=== PATIENT | female | born 1965 | race Caucasian/White ===

== ENCOUNTER 2017-08-06 07:28 | Emergency (ER) | payer BC ==
[2017-08-06 07:44] VITALS: BP 122/78
--- NOTE | 2017-08-06 08:02 | UC ---
Truncal Trauma HPI - HPI Summary HPI Summary: LEFT RIBS PAIN X 5 DAYS INJURY TO HER LEFT SIDE/ RIBS , HIT HER LEFT RIBS TO THE CAR DOOR SHE WAS GETTING OUT OF HER CAR PAIN WITH DEEP BREATHING AND MOVING NO COUGH, NO SOB , NO FEVER, OR CHILLS - History Of Current Complaint Chief Complaint: UCGeneralIllness Stated Complaint: LEFT RIB PAIN 4 DAYS Time Seen by Provider: 08/06/17 07:41 Hx Obtained From: Patient Hx Last Menstrual Period: 06/18 ?: No Onset/Duration: Sudden Onset, Lasting Days - 5, Still Present Onset Of Pain: Immediate Severity Initially: Moderate Severity Currently: Moderate Pain Intensity: 5 Mechanism Of Injury: Blunt Trauma Aggravating Factor(s): Movement, Deep Breathing Alleviating factor(s): Rest Associated Signs And Symptoms: Negative: SOB, Chest Pain, Cough, Hematuria, Abdominal Pain, Fever, Nausea, Vomiting - Allergies/Home Medications Allergies/Adverse Reactions: Allergies Allergy/AdvReac Type Severity Reaction Status Date / Time No Known Allergies Allergy Verified 08/06/17 07:38 Home Medications: Home Medications Nebivolol TAB (NF) [Bystolic TAB (NF)] 5 mg PO DAILY 08/06/17 [History Confirmed 08/06/17] PMH/Surg Hx/FS Hx/Imm Hx Cardiovascular History: Cardiac Disease - Surgical History Surgical History: Yes Surgery Procedure, Year, and Place: appy. . tubaligation. court. ablation - Family History Known Family History: Negative: Diabetes - Social History Alcohol Use: Occasionally Substance Use Type: None Smoking Status (MU): Light Every Day Tobacco Smoker - Immunization History Most Recent Tetanus Shot: unknown Review of Systems Constitutional: Negative Skin: Negative Eyes: Negative ENT: Negative Respiratory: Negative Cardiovascular: Negative Is Patient Immunocompromised?: No All Other Systems Reviewed And Are Negative: Yes Physical Exam Triage Information Reviewed: Yes Appearance: Well-Appearing, No Pain Distress, Well-Nourished Vital Signs: Initial Vital Signs Temp 98.3 F 08/06/17 07:37 Pulse 91 08/06/17 07:37 Resp 16 08/06/17 07:37 BP 122/78 08/06/17 07:37 Pulse Ox 98 08/06/17 07:37 Vital Signs Reviewed: Yes Eye Exam: Normal Eyes: Positive: Conjunctiva Clear ENT: Positive: Normal ENT inspection, Hearing grossly normal, Pharynx normal Neck: Positive: Supple, Nontender, No Lymphadenopathy Respiratory: Positive: Lungs clear, Normal breath sounds, No respiratory distress, No accessory muscle use Cardiovascular: Positive: RRR, No Murmur, Pulses Normal Abdomen Description: Positive: Nontender, Soft. Negative: CVA Tenderness (R), CVA Tenderness (L), Distended, Guarding Bowel Sounds: Positive: Present Musculoskeletal: Positive: Other: - LEFT RIBS: NO SWELLING, NO BRUISING, + TENDERNESS RIBS 4,5,6 Truncal Trauma Course/Dx - Differential Dx/Diagnosis Provider Diagnoses: CONTUSION RIBS LEFT SIDE Discharge - Sign-Out/Discharge Documenting (check all that apply): Discharge - Discharge Plan Condition: Stable Disposition: HOME Prescriptions: Naproxen 500 mg PO BID #20 tablet Patient Education Materials: Rib Contusion (ED) Referrals: Sushant Thomas MD [Primary Care Provider] - - Billing Disposition and Condition Condition: STABLE Disposition: HOME
--- NOTE | 2017-08-06 08:11 | RAD ---
INDICATION: Left rib pain for days after injury COMPARISON: None. TECHNIQUE: 5 views of the left ribs were obtained. FINDINGS: An external radiodense marker is seen overlying the lower left flank. No fracture or significant focal osseous abnormality is seen. No pneumothorax is apparent. Limited views demonstrate grossly clear lungs. IMPRESSION: No radiographically apparent displaced rib fracture or pneumothorax. If the patient's symptoms persist, follow-up imaging is recommended.
== END 2017-08-06 08:47 | disposition home or self-care (01) ==
LOC: UCCORT 07:28
DX: S20.20XA Contusion of thorax, unspecified, initial encounter (principal); V48.4XXA Person boarding or alighting a car injured in noncollision transport accident, initial encounter; Y93.89 Activity, other specified; Y92.9 Unspecified place or not applicable; I51.9 Heart disease, unspecified; F17.210 Nicotine dependence, cigarettes, uncomplicated
CPT/HCPCS: 99202; G0463

== ENCOUNTER 2019-01-28 07:16 | Emergency (ER) | payer BC, OTHER ==
[2019-01-28 07:38] VITALS: BP 135/74
--- NOTE | 2019-01-28 08:18 | UC ---
Respiratory Complaint HPI - HPI Summary HPI Summary: 5 day history of wheezy cough without shortness of breath, has some sputum production. No hx of asthma and no smoke exposure. - History of Current Complaint Chief Complaint: UCRespiratory Stated Complaint: COUGH Time Seen by Provider: 01/28/19 08:09 Hx Obtained From: Patient Hx Last Menstrual Period: 06/18 Onset/Duration: Gradual Onset Severity Initially: Mild Severity Currently: Moderate Pain Intensity: 0 Character: Cough: Productive Aggravating Factors: Exertion, Recumbent Position Alleviating Factors: Upright Position Associated Signs And Symptoms: Positive: Wheezing, Nasal Congestion - Allergies/Home Medications Allergies/Adverse Reactions: Allergies Allergy/AdvReac Type Severity Reaction Status Date / Time No Known Allergies Allergy Verified 01/28/19 07:34 Home Medications: Home Medications Guaifenesin/Dextromethorphan [Coricidin Hbp Chest Leonard-Cough] 1 each PO SEE INSTRUCTIONS PRN 01/28/19 [History Confirmed 01/28/19] L.acidoph,Paracasei, B.lactis [Probiotic] 1 each PO DAILY 01/28/19 [History Confirmed 01/28/19] Vitamin THERAPEUTIC TAB* [Theragran TAB*] 1 tab PO DAILY 01/28/19 [History Confirmed 01/28/19] PMH/Surg Hx/FS Hx/Imm Hx Cardiovascular History: Other - takes beta norm due to hx of arrhythmia. - Surgical History Surgical History: Yes Surgery Procedure, Year, and Place: appy. . tubaligation. court. ablation - Family History Known Family History: Positive: Non-Contributory Negative: Diabetes - Social History Lives: With Family Alcohol Use: Occasionally Substance Use Type: None Smoking Status (MU): Heavy Every Day Tobacco Smoker Type: Cigarettes Amount Used/How Often: ~1/2 PPD Length of Time of Smoking/Using Tobacco: Since Age 14 - Immunization History Most Recent Tetanus Shot: 06/16/12 Review of Systems All Other Systems Reviewed And Are Negative: Yes Constitutional: Positive: Fatigue Skin: Positive: Negative Eyes: Positive: Negative ENT: Positive: Nasal Discharge Respiratory: Positive: Cough Cardiovascular: Positive: Negative. Negative: Palpitations, Chest Pain Gastrointestinal: Positive: Negative Is Patient Immunocompromised?: No Physical Exam Triage Information Reviewed: Yes Appearance: No Pain Distress, Ill-Appearing - looks mildly unwell. Vital Signs: Initial Vital Signs Temp 98.3 F 10/11/19 07:33 Pulse 83 01/28/19 07:33 Resp 16 01/28/19 07:33 BP 135/74 01/28/19 07:33 Pulse Ox 99 01/28/19 07:33 Eyes: Positive: Conjunctiva Clear ENT: Positive: Pharyngeal erythema, TMs normal Neck: Positive: Supple, Nontender, No Lymphadenopathy Respiratory: Positive: Chest non-tender, Lungs clear, Normal breath sounds Cardiovascular: Positive: RRR, No Murmur Psychological Exam: Normal Skin Exam: Normal Respiratory Course/Dx - Course Course Of Treatment: azithromycin for bronchitis treatment, possible mycoplasma. - Differential Dx/Diagnosis Differential Diagnosis/HQI/PQRI: Asthma, Bronchitis, Laryngitis Provider Diagnosis: Bronchitis Discharge ED - Sign-Out/Discharge Documenting (check all that apply): Patient Departure All imaging exams completed and their final reports reviewed: No Studies - Discharge Plan Condition: Stable Disposition: HOME Prescriptions: Azithromyxin LEÓN (NF) [Z-Le[place] (Zithromax) 250 mg tabs #6] 2 tab PO .TODAY, THEN 1 DAILY #6 tab Patient Education Materials: Acute Bronchitis (ED) Referrals: Sushant Thomas MD [Primary Care Provider] - Additional Instructions: Take full course of antibiotic, and continue use of Coricidin for cough and congestion. Follow up if you develop increased shortness of breath or fever. - Billing Disposition and Condition Condition: STABLE Disposition: Home
== END 2019-01-28 08:31 | disposition home or self-care (01) ==
LOC: UCCORT 07:16
DX: J40 Bronchitis, not specified as acute or chronic (principal); I49.9 Cardiac arrhythmia, unspecified; F17.210 Nicotine dependence, cigarettes, uncomplicated; Z79.899 Other long term (current) drug therapy
CPT/HCPCS: 99212; G0463